=== PATIENT | female | born 1935 | race Caucasian/White ===

== ENCOUNTER 2017-10-31 19:53 | Inpatient (IN) | payer MEDICARE, BC ==
[~2017-10-31] VITALS: Ht 160 cm; Wt 58.2 kg
[2017-10-31] VITALS (23 sets, daily range): BP systolic 130; BP diastolic 70; PULSE 61; TEMP 97.6; O2SAT 94–100
[~2017-10-31 19:53] MED LIST: ADDERALL XR15 MG PO; ALDACTONE 25MG25 M1 PO; ASPIRIN 81M81 MG/TA2 PO; BRILINTA90 MG PO; CARDI-OMEGA1000 MG PO; CEPHALEXIN500 M1 PO; CITRACAL + D CA1 TAB PO; DEMADEX 20MG20 M1 PO; DEXEDRINE; DEXEDRINE SPANS15 MG PO; ELIQUIS 2.5 PO; IMDUR 30MG30 MG/TAB PO; LANOXIN 0.120.125 MG PO; LASIX 40MG TABL40 MG PO; LEVAQUIN 5500 MG/TA1 PO; LIPITOR 80MG80 MG PO; LIPITOR20 MG PO; LOPRESSOR 225 MG/TAB PO; METADATEER20 PO; METHOTREXA2.5 MG/TAB PO; PREDNISONE 5MG5 MG PO; PREDNISONE1 MG PO; PREDNISONE10 MG PO; PRIL40; SYNTHROID PO; SYNTHROID0.088 MG/T PO; SYNTHROID0.112 MG/T PO; TOPROL XL 25MG25 MG PO; TYLENOL PM EXTR1 TA1 PO; XARELTO20 MG PO; ZESTRIL 5MG5 MG PO; ZESTRIL2.5 MG PO; [UNRECOGNIZED DRUG - OTHER]; [UNRECOGNIZED DRUG - OTHER] PO
[2017-10-31 20:12] LABS: BASO % 0.4 % (0.0-2.0); EOS # 0.1 (0.0-0.7); GRAN # 7.1 (1.4-6.5); GRAN % 67.9 % (42.2-75.2); HEMATOCRIT 43.7 % (37.0-47.0); HEMOGLOBIN 13.9 g/dl (12.5-16.0); LYMPH % 19.4 % (20.0-51.0); MEAN CELL VOLUME 96 fl (80.0-100.0); MEAN CORPUSCULAR HEMOGLOBIN 31 pg (27.0-31.0); MEAN CORPUSCULAR HGB CONC 32 g/dl (33.0-37.0); MEAN PLATELET VOLUME 9.6 fl (7.4-10.4); MONO # 1.1 (0.1-0.6); MONO % 10.4 % (1.7-9.3); PLATELET COUNT 271 K/mm3 (130-400); RED BLOOD COUNT 4.55 M/mm3 (4.10-5.30); REDCELL DISTRIBUTION WIDTH-CV 14.1 % (11.5-14.5)
[2017-10-31 20:16] LABS: INR 1.1 (0.8-3.0); PROTHROMBIN TIME 12.7 SECONDS (9.7-12.8)
[2017-10-31 20:21] LABS: ALBUMIN 3.9 gm/dL (3.5-5.0); BILIRUBIN,TOTAL 0.7 mg/dL (0.0-1.0); CREATININE, serum 0.93 mg/dL (0.52-1.25); TOTAL PROTEIN 7.4 gm/dL (6.4-8.2)
[2017-10-31 20:33] LABS: TROPONIN-I 0.021 ng/mL (0.000-0.034)
[2017-10-31] MEDS ORDERED: ULTRAM 50MG TAB50 MG PO (20:44)
[2017-11-01] VITALS (643 sets, daily range): BP systolic 108–138; BP diastolic 54–80; PULSE 54–64; TEMP 97.6–98.9; O2SAT 84–100
[2017-11-01] MEDS ORDERED: METADATEER20 PO (00:07)
[2017-11-01] MEDS ORDERED: TYLENOL PM EXTR1 TA1 PO (00:09)
[2017-11-01 05:17] LABS: HEMATOCRIT 39.5 % (37.0-47.0); HEMOGLOBIN 12.8 g/dl (12.5-16.0); MEAN CELL VOLUME 95 fl (80.0-100.0); MEAN CORPUSCULAR HEMOGLOBIN 31 pg (27.0-31.0); MEAN CORPUSCULAR HGB CONC 32 g/dl (33.0-37.0); MEAN PLATELET VOLUME 9.5 fl (7.4-10.4); PLATELET COUNT 218 K/mm3 (130-400); RED BLOOD COUNT 4.15 M/mm3 (4.10-5.30); REDCELL DISTRIBUTION WIDTH-CV 14.2 % (11.5-14.5)
[2017-11-01 05:28] LABS: ALBUMIN 3.2 gm/dL (3.5-5.0); BILIRUBIN,TOTAL 0.7 mg/dL (0.0-1.0); CALCIUM 8.2 mg/dL (8.4-10.2); CHOLESTEROL RISK RATIO 3.8; CREATININE, serum 0.9 mg/dL (0.52-1.25); POTASSIUM 3.7 mmol/L (3.4-5.0); TOTAL PROTEIN 6.2 gm/dL (6.4-8.2)
[2017-11-01 05:37] LABS: BAND 9 % (0-10); EOSINOPHIL 2 % (0-4); LYMPHOCYTE 20 % (20.0-51.0); METAMYELOCYTE 3 % (0-0); NEUTROPHILS 58 % (42.0-75.2)
[2017-11-01 05:38] LABS: HYPOCHROMIA 1+; PLATELET ESTIMATE NORMAL (NORMAL)
[2017-11-01 06:08] LABS: TROPONIN-I 0.061 ng/mL (0.000-0.034)
[2017-11-01] MEDS ORDERED: DIOVAN 40MG40 MG PO (11:37)
[2017-11-01] MEDS ORDERED: PACERONE400 MG PO (16:01)
== END 2017-11-01 17:30 | disposition home or self-care (01) | DRG 281 ==
LOC: COL.ER 19:53 → ICU 22:37
PROVIDERS: Emergency Medicine; Nurse Practitioner Family
DX: I21.4 Non-ST elevation (NSTEMI) myocardial infarction (principal); I50.22 Chronic systolic (congestive) heart failure; Z66 Do not resuscitate; I25.10 Atherosclerotic heart disease of native coronary artery without angina pectoris; E78.5 Hyperlipidemia, unspecified; I11.0 Hypertensive heart disease with heart failure; Z95.5 Presence of coronary angioplasty implant and graft; I48.91 Unspecified atrial fibrillation; Z86.718 Personal history of other venous thrombosis and embolism; Z79.01 Long term (current) use of anticoagulants; Z85.72 Personal history of non-Hodgkin lymphomas; M06.9 Rheumatoid arthritis, unspecified; I73.9 Peripheral vascular disease, unspecified; Z95.820 Peripheral vascular angioplasty status with implants and grafts; S80.922A Unspecified superficial injury of left lower leg, initial encounter
CPT/HCPCS: OP; 99222-AI; G0378; J0282; J7060; J7512

== ENCOUNTER 2018-01-17 20:18 | Emergency (ER) | payer MEDICARE, BC ==
[~2018-01-17] VITALS: Ht 160 cm; Wt 59.1 kg
[~2018-01-17 20:18] MED LIST changes: +DIOVAN 40MG40 MG PO; +PACERONE400 MG PO; +ULTRAM 50MG TAB50 MG PO
[2018-01-17 20:21] VITALS: BP 131/76; TEMP 97.8
[2018-01-17] MEDS ORDERED: HYZAAR 50-12.1 UDTAB PO (20:44)
[2018-01-17] MEDS ORDERED: DEMADEX 20MG20 M1 PO (20:46)
[2018-01-17 21:35] VITALS: PULSE 63
== END 2018-01-17 21:35 | disposition home or self-care (01) ==
LOC: COL.ER 20:18
DX: S52.002A Unspecified fracture of upper end of left ulna, initial encounter for closed fracture (principal); I25.10 Atherosclerotic heart disease of native coronary artery without angina pectoris; Z98.890 Other specified postprocedural states; X50.0XXA Overexertion from strenuous movement or load, initial encounter; Y92.009 Unspecified place in unspecified non-institutional (private) residence as the place of occurrence of the external cause
CPT/HCPCS: Q4050

== ENCOUNTER 2018-01-23 15:20 | Emergency (ER) | payer MEDICARE, BC ==
[~2018-01-23] VITALS: Ht 162.6 cm; Wt 57.7 kg
[~2018-01-23 15:20] MED LIST changes: +HYZAAR 50-12.1 UDTAB PO
[2018-01-23 15:24] VITALS: TEMP 97.2
[2018-01-23 16:36] VITALS: BP 134/84; PULSE 70
== END 2018-01-23 16:39 | disposition home or self-care (01) ==
LOC: COL.ER 15:20
DX: S52.022A Displaced fracture of olecranon process without intraarticular extension of left ulna, initial encounter for closed fracture (principal); Z87.891 Personal history of nicotine dependence; X58.XXXA Exposure to other specified factors, initial encounter

== ENCOUNTER 2018-01-27 08:16 | Day surgery (SDC) | payer MEDICARE, BC ==
[~2018-01-27] VITALS: Ht 162.6 cm; Wt 57.7 kg
[2018-01-27 09:02] VITALS: BP 127/55; PULSE 56; TEMP 97.3
[2018-01-27 12:02] VITALS: BP 126/56; PULSE 66
[2018-01-27 12:13] VITALS: BP 107/49; PULSE 66; TEMP 97.4
[2018-01-27 12:36] VITALS: BP 125/56; PULSE 61
[2018-01-27 12:50] VITALS: BP 124/53; PULSE 60
[2018-01-27] MEDS ORDERED: NORCO 325 MG-7.1 TAB PO (12:59)
[2018-01-27 13:00] VITALS: BP 112/44; PULSE 58
[2018-01-27] MEDS ORDERED: ULTRAM 50MG TAB50 MG PO (13:00)
== END 2018-01-27 13:50 | disposition home or self-care (01) ==
LOC: SDCO 08:16
DX: S52.032A Displaced fracture of olecranon process with intraarticular extension of left ulna, initial encounter for closed fracture (principal); M19.90 Unspecified osteoarthritis, unspecified site; I48.91 Unspecified atrial fibrillation; I50.9 Heart failure, unspecified; F32.9 Major depressive disorder, single episode, unspecified; E78.00 Pure hypercholesterolemia, unspecified; M81.0 Age-related osteoporosis without current pathological fracture; M06.9 Rheumatoid arthritis, unspecified; I25.10 Atherosclerotic heart disease of native coronary artery without angina pectoris; I25.2 Old myocardial infarction; E03.9 Hypothyroidism, unspecified; G47.419 Narcolepsy without cataplexy; Z79.01 Long term (current) use of anticoagulants; Z79.52 Long term (current) use of systemic steroids; Z88.6 Allergy status to analgesic agent; Z88.2 Allergy status to sulfonamides; Z88.8 Allergy status to other drugs, medicaments and biological substances; Z88.5 Allergy status to narcotic agent; Z85.72 Personal history of non-Hodgkin lymphomas; Z95.5 Presence of coronary angioplasty implant and graft; Z90.710 Acquired absence of both cervix and uterus; Z87.891 Personal history of nicotine dependence; Z82.61 Family history of arthritis; Z82.49 Family history of ischemic heart disease and other diseases of the circulatory system; Z82.62 Family history of osteoporosis; Z86.718 Personal history of other venous thrombosis and embolism
CPT/HCPCS: J0690; J1720; J2250; J2704; J2795; J3010; J7120

== ENCOUNTER 2018-10-15 20:12 | Observation (INO) | payer MEDICARE, BC ==
[~2018-10-15] VITALS: Ht 162.6 cm; Wt 63.7 kg
[~2018-10-15 20:12] MED LIST changes: +NORCO 325 MG-7.1 TAB PO
[2018-10-15 21:02] LABS: INR 1.2 (0.8-3.0); PROTHROMBIN TIME 13.5 SECONDS (9.7-12.8)
[2018-10-15 21:04] LABS: PARTIAL THROMBOPLASTIN TIME 24.9 SECONDS (26.0-37.0)
[2018-10-15 21:05] LABS: BASO # 0.1 (0.0-0.2); BASO % 0.5 % (0.0-2.0); EOS # 0.1 (0.0-0.7); EOS % 0.9 % (0-4.0); GRAN # 7.2 (1.4-6.5); GRAN % 73.4 % (42.2-75.2); HEMATOCRIT 43.9 % (37.0-47.0); HEMOGLOBIN 14.1 g/dl (12.5-16.0); LYMPH # 1.3 (1.2-3.4); LYMPH % 13.1 % (20.0-51.0); MEAN CELL VOLUME 96 fl (80.0-100.0); MEAN CORPUSCULAR HEMOGLOBIN 31 pg (27.0-31.0); MEAN CORPUSCULAR HGB CONC 32 g/dl (33.0-37.0); MEAN PLATELET VOLUME 10.3 fl (7.4-10.4); MONO # 1.1 (0.1-0.6); MONO % 11.3 % (1.7-9.3); PLATELET COUNT 215 K/mm3 (130-400); RED BLOOD COUNT 4.59 M/mm3 (4.10-5.30); REDCELL DISTRIBUTION WIDTH-CV 13.7 % (11.5-14.5)
[2018-10-15 21:11] LABS: ALANINE AMINOTRANSFERASE < 6 U/L (9-52); ALBUMIN 3.7 gm/dL (3.5-5.0); ALKALINE PHOSPHATASE 55 U/L (50-136); ANION GAP 8 mmol/L (7-16); AST,SGOT 25 U/L (15-37); BILIRUBIN,TOTAL 0.5 mg/dL (0.0-1.0); BLOOD UREA NITROGEN 23 mg/dL (7-17); CALCIUM 8.7 mg/dL (8.4-10.2); CARBON DIOXIDE 27 mmol/L (22-30); CHLORIDE 103 mmol/L (98-107); CREATININE, serum 0.94 (0.52-1.25); GLUCOSE 170 mg/dL (74-106); POTASSIUM 3.4 mmol/L (3.4-5.0); SODIUM 137 mmol/L (137-145); TOTAL PROTEIN 6.7 gm/dL (6.4-8.2)
[2018-10-15 21:22] LABS: TROPONIN-I 0.019 ng/mL (0.000-0.035)
--- NOTE | 2018-10-15 23:20 | NUR ---
Patient arrived to the unit at this time. Alert and oriented. Assessment and med rec completed. Reported pain throughout body due to rhumatoid arthritis. States she takes a tylenol PM every night before bed to help with the pain. Also requests that she receives her prednisone in the AM. Patient oriented to room. Denies any further needs at this time. Call light within reach.
[2018-10-15 23:29] VITALS: BP 115/58; PULSE 98; TEMP 97.5
[2018-10-16 03:42] VITALS: BP 99/54; PULSE 50; TEMP 97.9
--- NOTE | 2018-10-16 05:23 | NUR ---
Patient had uneventful night. Resting in bed. Only request was tylenol PM and a glass of ice water. Denied any further needs at this time. Call light within reach.
--- NOTE | 2018-10-16 07:00 | NUR ---
Report given to CHELA Son.
[2018-10-16 07:42] VITALS: BP 110/56; PULSE 51; TEMP 97.4
--- NOTE | 2018-10-16 10:00 | NUR ---
Patient assisted to bedside commode twice, patient c/o loose stools and urgency. Telemetry in place per order. Patient states she is anxious to d/c home, informed patient that hospitalist would be the one to release her after rounds. Patient verbalized understanding, call light within reach.
[2018-10-16] MEDS ORDERED: CORDARONE200 MG/TAB PO (11:15)
--- NOTE | 2018-10-16 12:35 | NUR ---
Discharge teaching given. Stressed importance of making/keeping follow up appointments. Instructed patient to stop metoprolol per hospitalist orders until f/u appointment with cardiology. Instructed patient on conditions under which to return. Patient verbalized understanding, escorted out by staff via wheelchair to private vehicle.
== END 2018-10-16 12:35 | disposition home or self-care (01) ==
LOC: COL.ER 20:12 → MEDICAL 21:55
PROVIDERS: Emergency Medicine; ADMIT Internal Medicine
DX: R42 Dizziness and giddiness (principal); I11.0 Hypertensive heart disease with heart failure; I50.9 Heart failure, unspecified; I48.91 Unspecified atrial fibrillation; I42.9 Cardiomyopathy, unspecified; Z79.01 Long term (current) use of anticoagulants; Z95.5 Presence of coronary angioplasty implant and graft; I25.2 Old myocardial infarction; E78.5 Hyperlipidemia, unspecified; I25.10 Atherosclerotic heart disease of native coronary artery without angina pectoris; Z86.718 Personal history of other venous thrombosis and embolism; I73.9 Peripheral vascular disease, unspecified; Z95.9 Presence of cardiac and vascular implant and graft, unspecified; I00 Rheumatic fever without heart involvement; Z85.72 Personal history of non-Hodgkin lymphomas; E03.9 Hypothyroidism, unspecified; Z79.899 Other long term (current) drug therapy; Z92.21 Personal history of antineoplastic chemotherapy; Z90.710 Acquired absence of both cervix and uterus; Z87.891 Personal history of nicotine dependence; Z88.6 Allergy status to analgesic agent; Z88.2 Allergy status to sulfonamides
CPT/HCPCS: G0378; J7512

== ENCOUNTER → 2019-01-28 | Outpatient (CLI) | payer MEDICARE, BC ==
[~2019-01-28] MED LIST changes: +CORDARONE200 MG/TAB PO
== END ==
LOC: ZCOL.LAB 15:55
DX: T14.8XXA Other injury of unspecified body region, initial encounter (principal)

== ENCOUNTER 2020-03-23 04:24 | Inpatient (IN) | payer MEDICARE, BC ==
[2020-03-23] VITALS (501 sets, daily range): BP systolic 95–122; BP diastolic 41–90; PULSE 102–132; TEMP 97.4–97.8; O2SAT 77–100
[~2020-03-23] VITALS: Ht 162.6 cm; Wt 51.1 kg
[~2020-03-23 04:24] MED LIST changes: +OMNICEF 300MG300 MG PO; +PLAVIX 75MG TAB75 MG PO
[2020-03-23 04:58] LABS: HEMATOCRIT 47.5 % (37.0-47.0); HEMOGLOBIN 14.6 g/dl (12.5-16.0); MEAN CELL VOLUME 86 fl (80.0-100.0); MEAN CORPUSCULAR HEMOGLOBIN 26 pg (27.0-31.0); MEAN CORPUSCULAR HGB CONC 31 g/dl (33.0-37.0); MEAN PLATELET VOLUME 10.8 fl (7.4-10.4); PLATELET COUNT 304 K/mm3 (130-400); RED BLOOD COUNT 5.53 M/mm3 (4.10-5.30); REDCELL DISTRIBUTION WIDTH-CV 15.7 % (11.5-14.5)
[2020-03-23 05:06] LABS: INR 1.2 (0.8-3.0); PROTHROMBIN TIME 13.4 SECONDS (9.7-12.8)
[2020-03-23 05:08] LABS: ALBUMIN 4.2 gm/dL (3.5-5.0); BILIRUBIN,TOTAL 0.9 mg/dL (0.0-1.0); CALCIUM 9.5 mg/dL (8.4-10.2); CREATININE, serum 1.17 (0.52-1.25); POTASSIUM 3.9 mmol/L (3.4-5.0); TOTAL PROTEIN 7.7 gm/dL (6.4-8.2)
[2020-03-23 05:22] LABS: TROPONIN-I 0.061 ng/mL (0.000-0.035)
[2020-03-23 05:30] LABS: COLLECTION METHOD CLEAN CATCH
[2020-03-23 05:38] LABS: PH 5 (5-8); SQUAMOUS EPITHELIAL None Seen /hpf; URINE APPEARANCE Hazy; URINE BACTERIA Many /hpf; URINE BILIRUBIN Negative (NEGATIVE); URINE BLOOD 2+ (NEGATIVE); URINE COLOR Yellow; URINE GLUCOSE Negative (NEGATIVE); URINE KETONE Negative (NEGATIVE); URINE LEUKOCYTE ESTERASE 1+ (NEGATIVE); URINE NITRATE Negative (NEGATIVE); URINE PROTEIN(semi-quant) Negative (NEGATIVE); URINE RBC 0-2 /hpf; URINE UROBILINOGEN Negative (NEGATIVE)
[2020-03-23 05:43] LABS: EOSINOPHIL 1 % (0-4); LYMPHOCYTE 13 % (20.0-51.0); NEUTROPHILS 73 % (42.0-75.2)
[2020-03-23 05:44] LABS: ANISOCYTOSIS 1+; HYPOCHROMIA 1+
[2020-03-23 06:30] LABS: ARTERIAL BLD GAS O2 SATURATION 97.9 % (92-100); ARTERIAL BLOOD GAS BASE EXCESS 0.4 (-2-2); ARTERIAL BLOOD GAS HCO3 26.7 meq/L (22-26); ARTERIAL BLOOD GAS PCO2 49.3 mmHg (35-45); ARTERIAL BLOOD GAS PO2 111.5 mmHg (80-100); ARTERIAL BLOOD GAS pH 7.35 (7.35-7.45)
[2020-03-23 11:38] LABS: ARTERIAL BLD GAS O2 SATURATION 92.5 % (92-100); ARTERIAL BLOOD GAS HCO3 20.9 meq/L (22-26); ARTERIAL BLOOD GAS PCO2 34.3 mmHg (35-45); ARTERIAL BLOOD GAS PO2 64.6 mmHg (80-100)
[2020-03-24] VITALS (809 sets, daily range): BP systolic 80–127; BP diastolic 35–97; PULSE 55–194; TEMP 97.5–98.5; O2SAT 67–100
[2020-03-24 05:25] LABS: HEMATOCRIT 42.3 % (37.0-47.0); HEMOGLOBIN 13.2 g/dl (12.5-16.0); MEAN CELL VOLUME 86 fl (80.0-100.0); MEAN CORPUSCULAR HEMOGLOBIN 27 pg (27.0-31.0); MEAN CORPUSCULAR HGB CONC 31 g/dl (33.0-37.0); MEAN PLATELET VOLUME 10.2 fl (7.4-10.4); PLATELET COUNT 244 K/mm3 (130-400); RED BLOOD COUNT 4.95 M/mm3 (4.10-5.30); REDCELL DISTRIBUTION WIDTH-CV 15.8 % (11.5-14.5)
[2020-03-24 05:35] LABS: ALBUMIN 3.5 gm/dL (3.5-5.0); BILIRUBIN,TOTAL 1.3 mg/dL (0.0-1.0); CALCIUM 8.9 mg/dL (8.4-10.2); CREATININE, serum 1.23 (0.52-1.25); POTASSIUM 4.6 mmol/L (3.4-5.0); TOTAL PROTEIN 6.5 gm/dL (6.4-8.2)
[2020-03-24 05:48] LABS: TROPONIN-I 0.112 ng/mL (0.000-0.035)
[2020-03-24 06:01] LABS: BAND 2 % (0-10); LYMPHOCYTE 6 % (20.0-51.0); NEUTROPHILS 79 % (42.0-75.2)
[2020-03-24 06:02] LABS: ANISOCYTOSIS 1+; PLATELET ESTIMATE NORMAL (NORMAL); POIKILOCYTOSIS 1+
[2020-03-24 06:03] LABS: HYPOCHROMIA 2+; OVALOCYTES 1+
[2020-03-24 18:35] LABS: ARTERIAL BLD GAS O2 SATURATION 93.5 % (92-100); ARTERIAL BLD GAS TCO2 CT 20.9; ARTERIAL BLOOD GAS BASE EXCESS -5.7 (-2-2); ARTERIAL BLOOD GAS HCO3 19.8 meq/L (22-26); ARTERIAL BLOOD GAS PCO2 38.5 mmHg (35-45); ARTERIAL BLOOD GAS PO2 73.5 mmHg (80-100); ARTERIAL BLOOD GAS pH 7.33 (7.35-7.45)
[2020-03-25] VITALS (760 sets, daily range): BP systolic 102–154; BP diastolic 33–77; PULSE 58–74; TEMP 95.9–98.6; O2SAT 71–100
[2020-03-26] VITALS (130 sets, daily range): O2SAT 90–95
[2020-03-27] MEDS ORDERED: ROXANOL 20MG20 MG/ML SL ×2 (09:13→09:28)
[2020-03-27] MEDS ORDERED: BLUE-EMU LIDOC1 EACH TP ×5 (09:13→09:31)
[2020-03-27 09:33] VITALS: BP 121/61; PULSE 58; TEMP 95.9
== END 2020-03-27 09:45 | disposition hospice, inpatient (51) | DRG 871 ==
LOC: COL.ER 04:24 → ICU 07:03 → SURG 03-26 03:45
PROVIDERS: Emergency Medicine; ADMIT Hospitalist
DX: A41.9 Sepsis, unspecified organism (principal); R65.21 Severe sepsis with septic shock; J96.01 Acute respiratory failure with hypoxia; J96.02 Acute respiratory failure with hypercapnia; I21.A1 Myocardial infarction type 2; S22.069A Unspecified fracture of T7-T8 vertebra, initial encounter for closed fracture; S22.42XA Multiple fractures of ribs, left side, initial encounter for closed fracture; N39.0 Urinary tract infection, site not specified; E87.2 Acidosis; K92.2 Gastrointestinal hemorrhage, unspecified; I47.2 Ventricular tachycardia; N18.9 Chronic kidney disease, unspecified; I25.10 Atherosclerotic heart disease of native coronary artery without angina pectoris; Z20.828 Contact with and (suspected) exposure to other viral communicable diseases; I48.91 Unspecified atrial fibrillation; E78.5 Hyperlipidemia, unspecified; Z85.71 Personal history of Hodgkin lymphoma; Z51.5 Encounter for palliative care; Z79.82 Long term (current) use of aspirin; Z86.718 Personal history of other venous thrombosis and embolism; Z87.891 Personal history of nicotine dependence; G47.419 Narcolepsy without cataplexy; Z66 Do not resuscitate; M06.9 Rheumatoid arthritis, unspecified; Z99.3 Dependence on wheelchair
CPT/HCPCS: 99223-AI; 99231-AI; 99233-AI; 99239; C9113; J0282; J0456; J0610; J1815; J2060; J2405; J2543; J3475; J7030; J7050; J7060; Q9967